=== PATIENT | male | born 1965 | race Caucasian/White ===

== ENCOUNTER 2020-03-11 06:05 | Emergency (ER) | payer BC ==
[~2020-03-11] VITALS: Ht 172.7 cm; Wt 109.1 kg
[2020-03-11 06:55] LABS: HEMATOCRIT 48.1 % (42.0-52.0); HEMOGLOBIN 16.1 g/dL (13.5-18.0); MEAN CELL VOLUME 90 fl (78-100); MEAN CORPUSCULAR HEMOGLOBIN 30 pg (27-31); MEAN CORPUSCULAR HGB CONC 34 g/dL (33-37); MEAN PLATELET VOLUME 9.3 fl (7.4-10.4); PLATELET COUNT 277 K/mm3 (130-400); RED BLOOD COUNT 5.32 M/mm3 (4.20-5.60); WHITE BLOOD COUNT 8.4 K/mm3 (4.8-10.8)
[2020-03-11 06:56] LABS: ALBUMIN 3.9 g/dL (3.5-5.0); POTASSIUM 4.3 mmol/L (3.5-5.1)
[2020-03-11 06:58] LABS: CALCIUM 8.4 mg/dL (8.3-10.5)
[2020-03-11 07:01] LABS: TOTAL BILIRUBIN 0.5 mg/dL (0.2-1.2)
[2020-03-11 07:13] LABS: D-DIMER 0.25 mg/L FEU (0.15-0.50)
[2020-03-11 07:27] LABS: LYMPHOCYTE 26 % (20-51); MONOCYTE 11 % (3-10); NEUTROPHILS 61 % (42-75)
[2020-03-11 10:36] VITALS: BP 129/99
== END 2020-03-11 10:44 | disposition home or self-care (01) ==
LOC: ED 06:05
PROVIDERS: Nurse Practitioner Primary Care
DX: R07.89 Other chest pain (principal)

== ENCOUNTER → 2022-08-25 | Day surgery (SDC) | payer BC | LOC: MSO 09:50 | DX: Z12.11 Encounter for screening for malignant neoplasm of colon (principal); Z87.891 Personal history of nicotine dependence | CPT/HCPCS: 00812; J2704; J7120 ==